=== PATIENT | male | born 1970 | race Caucasian/White ===

== ENCOUNTER 2017-04-09 17:42 | Emergency (ER) | payer BC, MEDICAID ==
[2017-04-09 17:56] VITALS: BMI 29.0
[2017-04-09 18:00] VITALS: BP 130/80; TEMP 98.4
[2017-04-09] MEDS ORDERED: Albuterol 0.083% Inhal Sol (2.5 mg/3 mL) UD INH STA (18:37)
--- NOTE | 2017-04-09 18:37 | ED PDOC ---
HPI: CCC, URI, Sore Throat Time Seen by Provider: 04/09/17 18:18 Chief Complaint (Nursing): Cough, Cold, Congestion Chief Complaint (Provider): Cough, chest pain with cough History Per: Patient History/Exam Limitations: no limitations Have you had recent travel within the past 21 days to any of the following countries: [place], [place], [place] or [place]?: No Onset/Duration Of Symptoms: Days Current Symptoms Are (Timing): Still Present Sick Contacts (Context): None Additional Complaint(s): Pt was seen by his PMD on 03/30/17. Was given cough medications, Z-pack and albuterol inhaler. States he finished all medications but is not feeling better. No fever. Pt reports feeling very tired. Past Medical History Reviewed: Historical Data, Nursing Documentation, Vital Signs Vital Signs: Last Vital Signs Temp 98.4 F 04/09/17 17:56 Pulse 80 04/09/17 17:56 Resp BP 130/80 04/09/17 17:56 Pulse Ox 97 04/09/17 18:37 - Medical History PMH: Diabetes, Hypercholesterolemia - Surgical History Surgical History: Tonsillectomy - Family History Family History: States: No Known Family Hx - Living Arrangements Living Arrangements: With Family - Social History Current smoker - smoking cessation education provided: No Alcohol: None Drugs: Denies - Allergies Allergies/Adverse Reactions: Allergies Allergy/AdvReac Type Severity Reaction Status Date / Time No Known Allergies Allergy Verified 04/09/17 17:55 Review of Systems ROS Statement: Except As Marked, All Systems Reviewed And Found Negative Constitutional: Positive for: Weakness, Malaise. Negative for: Fever, Chills Cardiovascular: Positive for: Chest Pain (when coughing ) Respiratory: Positive for: Cough Physical Exam - Reviewed Nursing Documentation Reviewed: Yes Vital Signs Reviewed: Yes - Physical Exam Appears: Positive for: Well, Non-toxic, No Acute Distress Head Exam: Positive for: ATRAUMATIC, NORMAL INSPECTION, NORMOCEPHALIC Skin: Positive for: Normal Color, Warm, DRY Eye Exam: Positive for: Normal appearance ENT: Positive for: Normal ENT Inspection Neck: Positive for: Normal, Painless ROM Cardiovascular/Chest: Positive for: Regular Rate, Rhythm Respiratory: Positive for: Rhonchi, Wheezing. Negative for: Accessory Muscle Use, Respiratory Distress Gastrointestinal/Abdominal: Positive for: Normal Exam, Bowel Sounds, Soft. Negative for: Tenderness Back: Positive for: Normal Inspection Extremity: Positive for: Normal ROM Neurologic/Psych: Positive for: Alert, Oriented - ECG O2 Sat by Pulse Oximetry: 97 Pulse Ox Interpretation: Normal Medical Decision Making Medical Decision Making: Endorsed to Aminta Garcia PA-C pending labs Disposition - Clinical Impression Clinical Impression: Cough - Patient ED Disposition Is Patient to be Admitted: Transfer of Care - Disposition Disposition: Transfer of Care Disposition Time: 19:00 Condition: GOOD
[2017-04-09] MEDS ORDERED: Albuterol 0.083% Inhal Sol (2.5 mg/3 mL) UD ONE (18:45)
[2017-04-09 19:15] LABS: BASO # 0.1 K/uL (0.0-0.2); BASO % 0.6 % (0.0-2.0); EOS # 1.3 K/uL (0.0-0.7); EOS % 13.6 % (0.0-4.0); HEMATOCRIT 44.4 % (35.0-51.0); LYMPH # 2.8 K/uL (1.0-4.3); LYMPH % 28.3 % (20.0-40.0); MEAN CELL VOLUME 83.5 fl (80.0-94.0); MEAN CORPUSCULAR HGB CONC 33.6 g/dL (33.0-37.0); MONO # 0.8 K/uL (0.0-0.8); MONO % 8.1 % (0.0-10.0); NEUT # 4.9 K/uL (1.8-7.0); NEUT % 49.4 % (50.0-75.0); NRBC % 0.1 % (0.0-0.0); WHITE BLOOD COUNT 9.9 K/uL (4.8-10.8)
[2017-04-09 19:26] LABS: ALB/GLOB RATIO 1.4 (1.0-2.1); ALKALINE PHOSPHATASE 89 U/L (38-126); ALT/SGPT 109 U/L (21-72); AST/SGOT 80 U/L (17-59); BILIRUBIN,TOTAL 0.3 mg/dl (0.2-1.3); BLOOD UREA NITROGEN 14 mg/dl (9-20); CALCIUM 9.9 mg/dL (8.4-10.2); CARBON DIOXIDE 25 mmol/L (22-30); CHLORIDE 104 mmol/L (98-107); GFR AFRICAN-AMERICAN > 60; GLUCOSE,RANDOM 83 mg/dL (75-110); POTASSIUM 4.4 MMOL/L (3.6-5.0); SODIUM 141 mmol/l (132-148)
--- NOTE | 2017-04-09 19:39 | ED PDOC ---
- Laboratory Results Result Diagrams: 04/09/17 19:00 04/09/17 19:00 - ECG O2 Sat by Pulse Oximetry: 97 Medical Decision Making Medical Decision Making: Case endorsed to keno writer / runner from JEM Garnica at 1900 pending diagnotic review and re-eval CXR: NAD, as read by JEM Repeat Peak flow 250 after duo neb treatment CBC and COMP resulted WNL Pt educate don results and demonstrated full understanding. reports feeling improved on re-eval Pt given RX for Medrol dose pack and Promethazine with codeine, advised to take medication as directed. follow up with PMD, return to ED with any concerns. Disposition - Clinical Impression Clinical Impression: Cough - POA Present On Arrival: None - Disposition Disposition: Routine/Home Disposition Time: 20:48 Condition: GOOD Prescriptions: Methylprednisolone [Medrol Dose Pack (21 tabs)] 4 mg PO DAILY #21 mg Promethazine HCl/Codeine [Prometh-Codein 6.25-10 mg/5 ml] 5 ml PO HS #80 ml Instructions: Upper Respiratory Infection (ED)
[2017-04-09 20:52] VITALS: PULSE 74; O2SAT 94
--- NOTE | 2017-04-10 15:02 | RAD ---
HISTORY: cough x 3 weeks COMPARISON: No prior. TECHNIQUE: Chest PA and lateral FINDINGS: LUNGS: Poor inspiration with low lung volumes, mild crowded bronchovascular markings and mild bibasilar atelectasis right greater than left ; developing infiltrate right lower lobe could be excluded with followup radiographs or CT scan of the chest. In addition, discrete area of linear atelectasis and or scarring right anterior upper lobe seen best on the lateral projection in retrosternal airspace PLEURA: No significant pleural effusion identified. No pneumothorax apparent. CARDIOVASCULAR: Normal. OSSEOUS STRUCTURES: No significant abnormalities. VISUALIZED UPPER ABDOMEN: Normal. OTHER FINDINGS: None. IMPRESSION: Poor inspiration with low lung volumes, mild crowded bronchovascular markings and mild bibasilar atelectasis right greater than left ; developing infiltrate right lower lobe could be excluded with followup radiographs or CT scan of the chest. In addition, discrete area of linear atelectasis and or scarring right anterior upper lobe seen best on the lateral projection in retrosternal airspace. Report was placed in PA review folder for followup
== END 2017-04-09 20:51 | disposition home or self-care (01) ==
LOC: H.ER 17:42
DX: J06.9 Acute upper respiratory infection, unspecified (principal); R05 Cough; J98.11 Atelectasis